=== PATIENT | female | born 1975 | race Two or more races ===

== ENCOUNTER 2017-02-26 20:00 | Emergency (ER) | payer MEDICAID ==
--- NOTE | 2017-02-26 21:04 | ED Physician Chart ---
ED Chief Complaint/HPI - Patient Information Date Seen:: 02/26/17 Time Seen:: 20:08 Chief Complaint:: BACK PAIN History of Present Illness:: THIS IS A 41 YO FEMALE WHO STATES THAT SHE HAS INJURED HER LOWER BACK IN THE PAST. 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 SHE STATES THAT THE PAIN IS RADIATING DOWN THE BACK OF HER RIGHT THIGH AND LEG. SHE HAS DIFFICULTY SITTING AND WALKING. SHE DENIES HYPERTENSIO AND DIABETES. Allergies:: Allergies Allergy/AdvReac Type Severity Reaction Status Date / Time No Known Allergies Allergy Verified 02/26/17 20:06 Vitals:: Vital Signs - 8 hr 02/26/17 20:05 Temp 98.1 F HR 81 RR 18 BP 131/79 O2 Sat % 98 Historian:: Patient, Family Member () Review:: Nurse's Note Reviewed, Old Chart Reviewed ED Review of Systems - Review of Systems General/Constitutional: No fever, No chills, No weight loss, No weakness, No diaphoresis, No edema, No loss of appetite Skin: No skin lesions, No rash, No bruising Head: No headache, No light-headedness Eyes: No loss of vision, No pain, No diplopia ENT: No earache, No nasal drainage, No sore throat, No tinnitus Neck: No neck pain, No swelling, No thyromegaly, No stiffness, No mass noted Cardio Vascular: No chest pain, No palpitations, No PND, No orthopnea, No edema Pulmonary: No SOB, No cough, No sputum, No wheezing GI: No nausea, No vomiting, No diarrhea, No pain, No melena, No hematochezia, No constipation, No hematemesis G/U: No dysuria, No frequency, No hematuria Musculoskeletal: No bone or joint pain, Back pain (PAIN IN THE LOWER BACK), No muscle pain Endocrine: No polyuria, No polydipsia Psychiatric: No prior psych history, No depression, No anxiety, No suicidal ideation Hematopoietic: No bruising, No lymphadenopathy Allergic/Immuno: No urticaria, No angioedema Neurological: No syncope, No focal symptoms, No weakness, No paresthesia, No headache, No seizure, No dizziness, No confusion, No vertigo ED Past Medical History - Past Medical History Obtainable: Yes Past Medical History: No significant medical hx Family History: None Social History: Non Smoker, No Alcohol, No Drug Use Surgical History: Hysterectomy Psychiatricy History: None Medication: Reviewed Family Medical History - Family Member Mother History Unknown: Yes Ethnicity: Living Status: Still Living ED Physical Exam - Physical Examination General/Constitutional: Awake, Well-developed, well-nourished, Alert, No distress, GCS 15, Non-toxic appearing, Ambulatory Head: Atraumatic Eyes: Lids, conjuctiva normal, PERRL, EOMI Skin: Nl inspection, No rash, No skin lesions, No ecchymosis, Well hydrated, No lymphadenopathy ENMT: External ears, nose nl, Nasal exam nl, Lips, teeth, gums nl Neck: Nontender, Full ROM w/o pain, No JVD, No nuchal rigidity, No bruit, No mass, No stridor Respiratory: Nl effort/Exclusion, Clear to Auscultation, No Wheeze/Rhonchi/Rales Cardio Vascular: RRR, No murmur, gallop, rubs, NL S1 S2 GI: No tenderness/rebounding/guarding, No organomegaly, No hernia, Normal BS's, Nondistended, No mass/bruits, No McBurney tenderness : No CVA tenderness Extremities: No tenderness or effusion, Full ROM, normal strength in all extremities, No edema, Normal digits & nails Neuro/Psych: Alert/oriented, DTR's symmetric, Normal sensory exam, Normal motor strength, Judgement/insight normal, Mood normal, Normal gait, No focal deficits Misc: No paraspinal tenderness Other Misc comments:: THERE IS TENDERNESS IN THE L4 TO S1 AREA BILATERALLY. THE PATIENT IS UNABLE TO FLEX OR EXTEND BECAUSE OF SEVERE PAIN. ED Labs/Radiology/EKG Results - Radiology Results Results: CT SCAN OF THE LOWER BACK = nad ED Assessment - Assessment General Assessment: LUMBOSCARAL STRAIN ED Septic Shock - . Is Septic Shock (SBP<90, OR Lactate>4 mmol\L) present?: No - <6hrs of presentation: Vital Signs: Vital Signs - 8 hr 02/26/17 20:05 Temp 98.1 F HR 81 RR 18 BP 131/79 O2 Sat % 98 ED Reassessment (Disposition) - Reassessment Reassessment Condition:: Improved - Diagnosis Diagnosis:: LUMBO SACRAL STRAIN - Aftercare/Follow up Instructions Aftercare/Follow-Up Instructions:: Counseled pt regarding lab results/diagnosis & need follow up, Refer to Discharge Instructions, Counseled pt & family regarding lab results/diagnosis & need follow up - Patient Disposition Discharge/Transfer:: Home Condition at Disposition:: Improved ED Discharge Plan - Patient Disposition Admit/Discharge/Transfer: PT DISCHARGED HOME Condition at Disposition: Improved
--- NOTE | 2017-02-27 08:22 | Diagnostic Imaging Report ---
Exam: CT examination of the lumbar cervical spine. HISTORY: Back injury Total DLP equals 1122 CTDI equals 41.9 Findings: Multiple contiguous thin section of the lumbar sacral spine were obtained without administration of contrast material. No prior studies available comparison. Multiple axial images were obtained with coronal and sagittal reconstruction technique. The study demonstrates vertebral bodies of normal height with preserved intervertebral disc spaces. There is no evidence of fracture dislocation or prevertebral soft tissue swelling The pedicles are intact. There is no evidence of spondylolysis or spondylolisthesis. The posterior elements are normal. There is no evidence of spinal stenosis IMPRESSION: Normal examination of the lumbar sacral spine.. If clinically indicated MRI examination might be helpful.
== END 2017-02-26 22:22 | disposition home or self-care (01) ==
LOC: ER 20:00
DX: S39.012A Strain of muscle, fascia and tendon of lower back, initial encounter (principal); X58.XXXA Exposure to other specified factors, initial encounter; Y93.89 Activity, other specified; Y92.89 Other specified places as the place of occurrence of the external cause; Y99.8 Other external cause status
CPT/HCPCS: 99284; 96372; 72131; J1885; Z7502

== ENCOUNTER 2018-08-07 10:01 | Emergency (ER) | payer MEDICAID ==
--- NOTE | 2018-08-07 11:33 | ED Physician Chart ---
ED Chief Complaint/HPI - Patient Information Date Seen:: 08/07/18 Time Seen:: 11:11 Chief Complaint:: low back pain into R buttock History of Present Illness:: 43 y/o female came into ER via wheelchair accompanied by , c/o of 02/27 right lower back pain that radiates to right leg, patient stated she feels "tingling" all over right side, awale alert orienated x4, no apparent distress placed bed 4 MD at bedside. Allergies:: Allergies Allergy/AdvReac Type Severity Reaction Status Date / Time No Known Allergies Allergy Verified 02/26/17 20:06 Vitals:: Vital Signs - 8 hr 08/07/18 11:11 Temp 98.2 F HR 81 RR 18 BP 132/69 O2 Sat % 98 Historian:: Patient Review:: Nurse's Note Reviewed ED Review of Systems - Review of Systems General/Constitutional: No fever, No chills, No weight loss, No weakness, No diaphoresis, No edema, No loss of appetite Skin: No skin lesions, No rash, No bruising Head: No headache, No light-headedness Eyes: No loss of vision, No pain, No diplopia ENT: No earache, No nasal drainage, No sore throat, No tinnitus Neck: No neck pain, No swelling, No thyromegaly, No stiffness, No mass noted Cardio Vascular: No chest pain, No palpitations, No PND, No orthopnea, No edema Pulmonary: No SOB, No cough, No sputum, No wheezing GI: No nausea, No vomiting, No diarrhea, No pain, No melena, No hematochezia, No constipation, No hematemesis G/U: No dysuria, No frequency, No hematuria Musculoskeletal: Back pain, Other (right buttock pain) Endocrine: No polyuria, No polydipsia Psychiatric: No prior psych history, No depression, No anxiety, No suicidal ideation Hematopoietic: No bruising, No lymphadenopathy Allergic/Immuno: No urticaria, No angioedema Neurological: No syncope, No focal symptoms, No weakness, No paresthesia, No headache, No seizure, No dizziness, No confusion, No vertigo ED Past Medical History - Past Medical History Obtainable: No Past Medical History: No significant medical hx, Other (right sciatica) Family Medical History - Family Member Mother History Unknown: Yes Hx Family Dementia: Yes ED Physical Exam - Physical Examination General/Constitutional: Awake, Alert, GCS 15, Non-toxic appearing, Ambulatory Other Gen/Cons comments:: in pain overweight Head: Atraumatic Eyes: Lids, conjuctiva normal, PERRL, EOMI Skin: Nl inspection, No rash, No skin lesions, No ecchymosis, Well hydrated, No lymphadenopathy ENMT: External ears, nose nl Neck: Nontender, No nuchal rigidity, No stridor Respiratory: Nl effort/Exclusion, Clear to Auscultation, No Wheeze/Rhonchi/Rales Cardio Vascular: RRR, No murmur, gallop, rubs, NL S1 S2 GI: No tenderness/rebounding/guarding, No organomegaly, No hernia, Normal BS's, Nondistended, No mass/bruits, No McBurney tenderness : No CVA tenderness Extremities: No tenderness or effusion, Full ROM, normal strength in all extremities, No edema, Normal digits & nails Neuro/Psych: Alert/oriented, Normal sensory exam, Normal motor strength, Judgement/insight normal, Normal gait, No focal deficits Other Neuro/Psych comments:: in pain. Other Misc comments:: pain to palpation of the lower back with radiation to the right leg. Negative straight leg raise bilaterally. patient feels 100% better after receiving the 2 injections. wants to go home. ED Septic Shock - . Is Septic Shock (SBP<90, OR Lactate>4 mmol\\L) present?: No - <6hrs of presentation: Vital Signs: Vital Signs - 8 hr 08/07/18 11:11 Temp 98.2 F HR 81 RR 18 BP 132/69 O2 Sat % 98 ED Reassessment (Disposition) - Reassessment Reassessment Condition:: Improved - Diagnosis Diagnosis:: Low back pain without evidence of herniated disc, straight leg raise test negative. - Aftercare/Follow up Instructions Aftercare/Follow-Up Instructions:: Refer to Discharge Instructions Medication Prescribed:: Motrin and Flexeril. CURES negative. - Patient Disposition Discharge/Transfer:: Home Condition at Disposition:: Stable, Improved
== END 2018-08-07 13:33 | disposition home or self-care (01) ==
LOC: ER 10:01
DX: M54.5 Low back pain (principal)
CPT/HCPCS: Z7502